=== PATIENT | female | born 1990 | race Caucasian/White ===

== ENCOUNTER 2023-01-15 14:56 | Inpatient (IN) ==
[2023-01-15] MEDS ORDERED: LIDOCAINE 1% LOCAL 20 ML VIAL INFIL PRN (15:03)
[2023-01-15] MEDS: LACTATED RINGER'S 1,000 ML IV PRN ×2 (15:10→16:16)
--- NOTE | 2023-01-15 15:20 | History & Physical Report ---
Date of Service January 15, 2023 Assessment & Plan (1) Supervision of normal intrauterine in primigravida: Plan: Pt is a 32 yo at 40 1/7 WGA presenting to labor and delivery for active labor. Blood type; O+, GBS negative, rubella immune Patient requested epidural, anesthesia consult placed. Proceed with labor and plan for vaginal delivery. History of Present Illness Chief Complaint: Labor Primary Care Provider: Speedy Pineda DO Pt is a 32 y/o female currently at 40 1/7 WGA with an KAITLYN of 01/14/23 as determined by LMP who is here for active labor with ruptured membranes. Her was complicated by GDM. She is having frequent contractions; + movement; + fluid loss; + bloody show. External FHT and external uterine monitors used; moderate FHT variability. Pt had regular appointments with OB. Labs: Blood type: O+ Antibody screen: neg Rubella: immune VDRL/RPR: neg Gonorrhea: neg Chlamydia: neg HIV: neg HbSAg: neg GBS: neg (-) Other screens: cff-DNA: neg CF: neg SMA: neg Last hemoglobin 10/26/22: 12.3 Last platelet count : 230 Allergies Allergy/AdvReac Type Severity Reaction Status Date / Time No Known Drug Allergies Allergy Verified 01/14/23 11:17 Home Medications Medication Instructions Recorded Confirmed Type prenat.vits,elena,[id number] 1 tab PO DAILY 06/02/22 01/15/23 History pantoprazole 40 mg tablet,delayed 40 mg PO QAM #90 tabs 11/19/22 01/15/23 Rx release (Protonix) breast pump #1 ea 01/07/23 01/14/23 Rx Patient History Medical History ADHD GERD (gastroesophageal reflux disease) History of ovarian cyst no surgery intervention Migraine Surgical History H/O wisdom tooth extraction S/P cholecystectomy Family History Grandmother (Maternal) FHx: thyroid cancer Grandmother (Paternal) FHx: breast cancer Breast cancer Mother Endometriosis Thyroid disease Father Hypertension Grandfather (Maternal) Prostate cancer Denies family history of Ovarian cancer Myocardial infarction Colorectal cancer Social History Smoking Status: Never smoker Second Hand Exposure: No; Do You Dip or Chew Tobacco: No; Hx Alcohol Use: No Hx Substance Use: No Preferred Language: Kyrgyz Communication Ability: Effective Visual Impairment: No Limitations Hearing Ability: Normal [employer] Required: No Beliefs That Will Affect Care: None marital status: marital status details: Yovani (32) [phone] Current Living Situation: Spouse Current Living Situation Comment: lives with spouse, 2 dogs. current occupational status: employed current occupation: [employer] @ [employer] Feels Safe at Home: Yes Childhood Exposure to Second-Hand Smoke: No Diet: regular Dental Care, Regularly: Yes Physical Activity Frequency: 3-4 Times per Week Seatbelt Use: always Sunscreen Use: Yes Assistive Devices: None Review of Systems no fever, no chills and no sweats nausea noted no dyspnea no difficulty breathing no chest pain and no palpitations no dysuria no headache(s) no changes in vision no breast pain Physical Exam Physical Exam: General: Alert, oriented. No acute distress. Cardiac: Regular rate and rhythm, no murmurs, gallops, or rubs. Respiratory: Clear to auscultation bilaterally, no wheezes, rales, or rhonchi. No increased work of breathing. No respiratory distress. Abdomen: Gravid, Position: vertex Pelvic: Dilation 4.5 cm, Effacement 80%, Station -[address] Leung. Lower extremities: No lower extremity edema or swelling. No deep calf pain. Results & Data Vital Signs (Past 12 Hours) Vital Signs Pulse BP 01/15/23 15:13 57 L 185/93 H Supervising Physician Co-Signing Physician Notes Resident Physician Supervision Note: I interviewed and examined the patient. Discussed with Dr. Shankar and agree with findings and plan as documented in the note. Any exceptions or clarifications are listed here: 32 yo G1 at 40 1/7 wga presented w/ SROM around 315pm and ctx q2min since then. Denies VB. PNI: resolved FGR, abnormal umbilical vein > echo. SVE 4-5/70/-2. GBS neg, desires epidural Documented By: Kori Leung MD Resident Activity Tracking Resident Involvement: Resident Care Provided Care Provided: OB Delivery
[2023-01-15] MEDS ORDERED: ePHEDrine sulfate 50 MG/ML AMP ONE (15:24)
[2023-01-15] MEDS ORDERED: LIDOCAINE 2%/EPINEPHRINE 1:200,000 20 ML PF ONE (15:24)
[2023-01-15] MEDS ORDERED: SODIUM CHLORIDE 0.9% PF INJ 10 ML VIAL ONE (15:24)
[2023-01-15] MEDS ORDERED: fentaNYL citrate PF 100 MCG/2 ML VIAL ONE (15:24)
[2023-01-15] MEDS ORDERED: BUPIVACAINE 0.25% PF 30 ML VIAL ONE (15:24)
[2023-01-15] MEDS ORDERED: fentaNYL 2MCG/ML ROPIVACAINE 1.25MG/ML 100 ML BAG EPI ONE (15:25)
[2023-01-15] MEDS ORDERED: NALOXONE HCL 1 MG in SODIUM CHLORIDE 0.9% 1000ML 1,000 ML IV PRN (15:46)
[2023-01-15] MEDS ORDERED: ROPIVACAINE 0.5% PF 5 MG/ML 20 ML VIAL EPI PRN (15:46)
[2023-01-15] MEDS ORDERED: LIDOCAINE 2% MPF LOCAL 5 ML VIAL EPI PRN (15:46)
[2023-01-15] MEDS ORDERED: SODIUM CHLORIDE 0.9% PF INJ 10 ML VIAL EPI STA (15:46)
[2023-01-15] MEDS ORDERED: NALOXONE HCL 0.4 MG/1 ML VIAL/CARP IV PRN (15:46)
[2023-01-15] MEDS ORDERED: fentaNYL 2MCG/ML ROPIVACAINE 1.25MG/ML 100 ML BAG EPI PRN (15:46)
[2023-01-15] MEDS ORDERED: fentaNYL citrate PF 100 MCG/2 ML VIAL EPI STA (15:46)
[2023-01-15] MEDS ORDERED: BUPIVACAINE 0.25% PF 30 ML VIAL EPI PRN (15:46)
[2023-01-15] MEDS ORDERED: diphenhydrAMINE 50 MG/ML VIAL IV PRN (15:46)
[2023-01-15] MEDS ORDERED: BUPIVACAINE 0.25% PF 30 ML VIAL EPI STA (15:46)
[2023-01-15] MEDS ORDERED: NALBUPHINE HCL INJ 10 MG/ML AMP IV PRN (15:46)
[2023-01-15] MEDS ORDERED: SODIUM CHLORIDE 0.9% PF INJ 10 ML VIAL EPI PRN (15:46)
[2023-01-15] MEDS ORDERED: fentaNYL citrate PF 100 MCG/2 ML VIAL EPI PRN (15:46)
[2023-01-15] MEDS ORDERED: ePHEDrine sulfate 50 MG/ML AMP IV PRN (15:46)
[2023-01-15] MEDS ORDERED: LIDOCAINE 2%/EPINEPHRINE 1:200,000 20 ML PF EPI STA (15:46)
--- NOTE | 2023-01-15 15:46 | Anesthesiology Consultation ---
Date of Service January 15, 2023 Assessment & Plan (1) Encounter for pre-operative examination: Chart Review Chart Review: Patient NOT seen in Pre Admission Testing and Acceptable Risk for Labor Epidural Consults Requested none History Allergies Allergy/AdvReac Type Severity Reaction Status Date / Time No Known Drug Allergies Allergy Verified 01/14/23 11:17 Medications Home Medications Medication Instructions Recorded Confirmed Last Taken omega-3 fatty acids [Fish Oil] PO 06/02/22 01/14/23 Unknown prenat.vits,elena,[id number]-[id number] 1 tab PO DAILY 06/02/22 01/14/23 Unknown pantoprazole 40 mg tablet,delayed 40 mg PO QAM #90 tabs 11/19/22 01/14/23 Unknown release (Protonix) breast pump #1 ea 01/07/23 01/14/23 Unknown Past Medical History Medical History ADHD GERD (gastroesophageal reflux disease) History of ovarian cyst no surgery intervention Migraine Past Family History Family History Grandmother (Maternal) FHx: thyroid cancer Grandmother (Paternal) FHx: breast cancer Breast cancer Mother Endometriosis Thyroid disease Father Hypertension Grandfather (Maternal) Prostate cancer Denies family history of Ovarian cancer Myocardial infarction Colorectal cancer Past Surgical History Surgical History H/O wisdom tooth extraction S/P cholecystectomy Social History Smoking Status: Never smoker Do You Dip or Chew Tobacco: No Hx Alcohol Use: No Alcohol type: wine and hard liquor alcohol intake frequency: a few times a month Hx Substance Use: No substance use type: does not use Physical Exam Vital Signs Last Vital Signs Pulse 68 01/15/23 15:41 BP 182/85 H 01/15/23 15:39 Pulse Ox 94 01/15/23 15:41
[2023-01-15 15:59] LABS: Hematocrit (blood only) 36.7 % (37.0-47.0); Hemoglobin 12.6 g/dl (12.0-16.0); Mean Corpuscular Hemoglobin 28.2 pg (25.0-34.0); Mean Corpuscular Hgb Conc 34.3 g/dL (32.0-36.0); Mean Corpuscular Volume 82.1 fL (80.0-100.0); Mean Platelet Volume 12.3 fL (9.4-12.4); Platelet Count 212 K/uL (130-400); RDW Coefficient of Variation 13.1 % (11.5-14.5); RDW Standard Deviation 38.8 fL (36.4-46.3); Red Blood Count 4.47 M/uL (4.20-5.40); White Blood Count 17.35 K/ul (4.8-10.8)
[2023-01-15 16:20] LABS: Anion Gap 11 (3-11); BUN Creatinine Ratio 19.6 (10-20); Blood Urea Nitrogen 10 mg/dl (6-23); Calcium 8.9 mg/dl (8.6-10.3); Carbon Dioxide 20 mmol/L (21-32); Chloride 104 mmol/L (98-107); Est GFR (African American) 149.6 ml/min; Glucose 102 mg/dl (70-99(Fasting)); Potassium 3.6 mmol/L (3.5-5.1); Sodium 135 mmol/L (136-145)
[2023-01-15 16:50] LABS: Alanine Aminotransferase 30 U/L (7-52); Albumin Level 3.4 gm/dl (3.4-5.0); Alkaline Phosphatase 303 U/L (34-104); Aspartate Aminotransferase 23 U/L (13-39); Bilirubin Direct 0.2 mg/dl (0-0.2); Bilirubin,Total 0.5 mg/dl (0.2-1.0); Total Protein 6.6 gm/dl (6.0-8.3)
[2023-01-15] MEDS ORDERED: MAG SULFATE 4GM BOLUS FROM BAG IV ONE (18:41)
[2023-01-15] MEDS ORDERED: MAGNESIUM SULFATE 40GM / WTR 1,000 ML BAG IV ONE (18:43)
--- NOTE | 2023-01-15 18:46 | Communication Note ---
Date of Service: January 15, 2023 Delayed entry due to pt care. BPs were reviewed - initial BPs that were elevated were attributed due to significant labor pain as patient was writhing on the bed unable to get comfortable due to contractions. BP did improve after epidural however have slowly increased again despite resting comfortably and in different positions, most recently becoming severe range with persistent severe repeat. Discussed in the setting of persistent severe BPs despite normal labs with UPC pending currently, would call her severe pre-eclampsia and would recommend magnesium. Pt and in agreement, will start mag
[2023-01-15 18:54] LABS: Total Protein Urine Random 78.6 mg/dl (0-11.9)
[2023-01-15 19:00] LABS: Creatinine Urine Random 90.2 mg/dl; Protein Creatinine Ratio Urine 0.9 (0-0.2)
[2023-01-15] MEDS: OXYTOCIN 30 UNITS/500 ML BAG IV PRN ×2 (19:15→19:53)
[2023-01-15] MEDS ORDERED: miSOPROStoL 200 MCG TAB ONE ×2 (19:18→20:00)
[2023-01-15] MEDS: MAGNESIUM SULFATE / WTR 40 GM/1,000 ML BAG IV SCH (19:26)
[2023-01-15] MEDS ORDERED: METHYLERGONOVINE MALEATE 0.2 MG/ML AMP ONE ×2 (19:42→20:00)
[2023-01-15] MEDS ORDERED: SODIUM CHLORIDE 0.9% 250 ML IV PRN (19:50)
[2023-01-15] MEDS ORDERED: TRANEXAMIC ACID / 0.7% NACL 1000MG/100ML BAG IV ONE (19:59)
[2023-01-15] MEDS ORDERED: CARBOPROST TROMETHAMINE 250 MCG/ML AMPUL ONE (20:00)
--- NOTE | 2023-01-15 20:28 | Delivery Summary ---
Vaginal Delivery Summary Date of Service January 15, 2023 Vaginal Delivery Summary (vaginal lac, R labial laceration) PREOPERATIVE DIAGNOSIS: 1. Single intrauterine at 40 1/7 wga 2. SROM 3. Labor 4. Pre-eclampsia w/ severe features 5. Resolved FGR 6. Abnormal umbilical vein POSTOPERATIVE DIAGNOSIS: 1. Single intrauterine at 40 1/7 wga 2. SROM 3. Labor 4. Pre-eclampsia w/ severe features 5. Resolved FGR 6. Abnormal umbilical vein 7. Delivered PROCEDURE: 1. Normal spontaneous vaginal delivery. SURGEON: Kori Leung MD ANESTHESIA: Epidural. ESTIMATED BLOOD LOSS: 800 mL FLUIDS: Continuous LR. URINE OUTPUT: Not measured COMPLICATIONS: hemorrhage CONDITION: Stable. INDICATIONS: 32 yo G1 at 40 1/7 wga presented after srom this afternoon and contractions increasing in frequency and intensity. On arrival was 4-5cm. She received an epidural for pain control. She then progressed to complete and desired to push FINDINGS: A viable female , weight pending with Apgars of 8 and 9 at 1 and 5 minutes respectively. SPECIMEN: Cord blood, placenta OPERATIVE REPORT: The patient progressed to 10 cm, 100% effaced and +2 station, pushed over intact perineum with anesthesia to deliver a viable female infant, weight and Apgars as above. Head of delivered in LORRI position. Nuchal cord x 2 was noted and reduced. Body and shoulders were delivered without difficulty. was delivered to maternal abdomen and nursing staff. Delayed cord clamping was performed for 60 seconds. Cord was clamped and cut. Cord blood was obtained. Placenta delivered spontaneously intact with 3-vessel cord. IV oxytocin and fundal massage were given however OPAL atony was noted. Bimanual massage and hemabate was given. This did improve bleeding for a time. 1000mcg cytotec was placed CT. Vagina, cervix, perineum, and placenta were inspected. Bilateral vaginal tears were noted and repaired using 3-0 vicryl. After repair of the right vagina, atony and increased bleeding was noted so 1g TXA was given as well as massage. The left vaginal tear was then repaired. Additional bleeding was noted and repeat dose of hemabate was given which did improve however continued bleeding was noted. Bimanual massage was again performed, BP was taken and noted to be normal so decision was made to give methergine due to continued bleeding. At this point, improvement in bleeding was noted. The superior right labial laceration was noted and repaired using 4-0 vicryl in interrupted stitches. At this point bleeding was stable and lacerations were all repaired. Sponge and needle counts correct x2. No sponges were left behind. Mother and stable in immediate period. [facility] Vaginal Delivery Charge Vaginal Delivery Codes: 87843 global code for the antepartum, delivery, and post- Delivery Type Details: (vaginal lac, R labial laceration)
[2023-01-15 20:38] LABS: Hematocrit (blood only) 32.6 % (37.0-47.0); Hemoglobin 11.1 g/dl (12.0-16.0); Mean Corpuscular Hemoglobin 28.4 pg (25.0-34.0); Mean Corpuscular Volume 83.4 fL (80.0-100.0); Mean Platelet Volume 12.3 fL (9.4-12.4); Platelet Count 227 K/uL (130-400); RDW Coefficient of Variation 13.1 % (11.5-14.5); RDW Standard Deviation 39.6 fL (36.4-46.3); Red Blood Count 3.91 M/uL (4.20-5.40)
[2023-01-15] MEDS ORDERED: bisacodyL 10 MG SUPP PR PRN (20:52)
[2023-01-15] MEDS ORDERED: IBUPROFEN 600 MG TAB PO PRN (20:52)
[2023-01-15] MEDS ORDERED: HYDROCORTISONE ACETATE 25 MG SUPP PR PRN (20:52)
[2023-01-15] MEDS ORDERED: CARBOPROST TROMETHAMINE 250 MCG/ML AMPUL IM ONE (20:52)
[2023-01-15] MEDS ORDERED: DIPHTHERIA/TETANUS/PERTUSSIS Vaccine (Tdap, Age 7+yrs) 0.5mL SYR/VL IM ONE (20:52)
[2023-01-15] MEDS ORDERED: OXYTOCIN 20 UNITS in LACTATED RINGER'S 1,000 ML IV SCH (20:52)
[2023-01-15] MEDS ORDERED: METHYLERGONOVINE MALEATE 0.2 MG/ML AMP IM ONE (20:52)
[2023-01-15] MEDS ORDERED: BENZOCAINE 20% AER SPR 82.5 GM CAN EXT PRN (20:52)
[2023-01-15] MEDS ORDERED: miSOPROStoL 200 MCG TAB PR ONE (20:52)
[2023-01-15] MEDS ORDERED: OXYTOCIN 30 UNITS/500 ML BAG IV PRN (20:52)
[2023-01-15] MEDS ORDERED: ACETAMINOPHEN 325 MG TAB PO PRN (20:52)
[2023-01-15 20:59] LABS: Fibrinogen 435 mg/dl (184-400); INR 0.9 (0.9-1.1); Partial Thromboplastin Ratio 0.8; Partial Thromboplastin Time 23.4 Seconds (21.0-31.0); Prothrombin Time 9.5 Seconds (9.0-12.0)
[2023-01-15] MEDS: ceFAZolin 2000MG 2,000 MG/15 ML SYR IV SCH (21:02)
[2023-01-15] MEDS: DOCUSATE SODIUM 100 MG CAP PO SCH (21:16)
--- NOTE | 2023-01-15 21:39 | Anesthesia Procedure Note ---
Date of Service January 15, 2023 Anesthesia Post Epidural Note Vital Signs Vital Signs: Temp Pulse Resp BP Pulse Ox 98.2 F 121 H 18 144/72 H 89 L 01/15/23 16:22 01/15/23 21:36 01/15/23 18:59 01/15/23 21:36 01/15/23 21:36 Notes Mental Status: alert / awake / arousable and participated in evaluation Nausea / Vomiting: adequately controlled Pain: adequately controlled Airway Patency, RR, SpO2: stable & adequate BP & HR: stable & adequate Hydration State: stable & adequate Neuraxial Anesthesia: was administered and sensory block is resolving Anesthetic Complications: no major complications apparent and Pt Satisfied with anesthetic care Epidural: Removed without complications and With tip intact
[2023-01-15 23:39] LABS: Hematocrit (blood only) 30.9 % (37.0-47.0); Hemoglobin 10.8 g/dl (12.0-16.0); Mean Corpuscular Hemoglobin 28.7 pg (25.0-34.0); Mean Corpuscular Volume 82.2 fL (80.0-100.0); Mean Platelet Volume 12.5 fL (9.4-12.4); Platelet Count 256 K/uL (130-400); RDW Coefficient of Variation 13.3 % (11.5-14.5); RDW Standard Deviation 39.6 fL (36.4-46.3); Red Blood Count 3.76 M/uL (4.20-5.40); White Blood Count 34.51 K/ul (4.8-10.8)
[2023-01-16] MEDS: ceFAZolin 2000MG 2,000 MG/15 ML SYR IV SCH (04:25)
--- NOTE | 2023-01-16 06:22 | Obstetrical Progress Note ---
Date of Service <Antionette Shankar DO - Last Filed: 01/16/23 06:26> January 16, 2023 Assessment & Plan <Antionette hSankar DO - Last Filed: 01/16/23 06:26> (1) care following vaginal delivery: Pt doing better this morning. Continue NPO. Continue brown. Continue Mg for 24 hours total. After discharge will have 6 week follow-up with Dr. Leung. (2) hemorrhage: Will monitor hemoglobin/hematocrit at least daily. CBC pending. <Kori Leung MD - Last Filed: 01/16/23 07:49> (1) care following vaginal delivery: (2) hemorrhage: Subjective <Antionette Shankar DO - Last Filed: 01/16/23 06:26> Pt is a 32 y/o female who is PPD#1 following at 40 1/7 weeks. Delivery was complicated by preeclampsia and post- hemorrhage of 800 mL. Spoke to nursing staff this morning, who state that the patient is looking better this morning both clinically and by her vitals. Nursing staff voiced no further concerns for her at this time. Patient also states that she feels better than she did last night. She is NPO and has a brown in place and is on Mag precautions. She states that her pain is minimal, like a 1/10, and that she is just very tired this morning. She plans to breast feed and bottle feed. She has no questions or concerns at this time. Constitutional: no fever, no chills or no sweats Respiratory: no dyspnea Cardiovascular: no chest pain or no palpitations Breast: no breast pain Genitourinary (female): no dysuria Neurologic: no headache(s) no changes in vision, no headaches Physical Exam <Antionette Shankar DO - Last Filed: 01/16/23 06:26> General: Alert, oriented. No acute distress. Cardiac: Regular rate and rhythm, no murmurs, rubs, or gallops. Respiratory: Clear to auscultation bilaterally, no wheezes/rales/rhonchi. No increased work of breathing. Symmetrical chest rise. No respiratory distress. Abdomen: Soft, nontender, nondistended. Bowel sounds present. Uterus: Uterine fundus firm. Lower extremities: No lower extremity edema or swelling. No deep calf pain. Results & Data <Antionette Shankar, DO - Last Filed: 01/16/23 06:26> Vital Signs (Past 12 Hours) Vital Signs Temp Pulse Resp BP Pulse Ox 01/16/23 04:38 37.1 C 01/16/23 04:00 18 01/16/23 03:00 18 01/16/23 03:00 37.4 C 01/16/23 02:00 18 01/16/23 01:00 18 01/16/23 00:00 18 01/16/23 01:35 37.7 C H 18 01/15/23 23:00 18 01/16/23 00:28 38.3 C H 01/15/23 22:00 18 01/15/23 22:30 18 01/15/23 22:00 18 01/15/23 21:30 18 01/15/23 21:15 18 01/15/23 21:00 18 01/15/23 20:45 18 01/15/23 21:00 18 01/15/23 20:00 18 01/15/23 20:30 36.5 C 01/16/23 06:10 98 H 96 01/16/23 06:05 100 H 96 01/16/23 06:00 99 H 96 01/16/23 05:55 98 H 96 01/16/23 05:50 94 H 96 01/16/23 05:45 92 H 96 01/16/23 05:40 90 96 01/16/23 05:35 93 H 97 01/16/23 05:30 96 H 95 01/16/23 05:31 98 H 92 01/16/23 05:28 96 H 121/65 01/16/23 05:25 88 95 01/16/23 05:24 92 H 93 01/16/23 05:20 83 95 01/16/23 05:15 83 96 01/16/23 05:12 84 94 01/16/23 05:10 88 96 01/16/23 05:07 91 H 94 01/16/23 05:05 97 H 96 01/16/23 05:02 87 94 01/16/23 05:00 89 95 01/16/23 04:57 94 H 94 01/16/23 04:55 94 H 95 01/16/23 04:50 85 95 01/16/23 04:45 88 95 01/16/23 04:44 87 94 01/16/23 04:40 87 95 01/16/23 04:38 86 94 01/16/23 04:35 92 H 95 01/16/23 04:33 93 H 94 01/16/23 04:30 86 97 01/16/23 04:28 93 H 116/63 01/16/23 04:25 96 H 97 01/16/23 04:23 95 H 94 01/16/23 04:20 87 95 01/16/23 04:15 86 96 01/16/23 04:10 93 H 97 01/16/23 04:05 97 H 97 01/16/23 04:00 90 96 01/16/23 03:55 97 H 96 01/16/23 03:50 97 H 97 01/16/23 03:45 94 H 97 01/16/23 03:40 91 H 96 01/16/23 03:35 92 H 97 01/16/23 03:30 96 H 96 01/16/23 03:25 99 H 97 01/16/23 03:20 91 H 96 01/16/23 03:18 104 H 123/79 01/16/23 03:17 93 H 89 L 01/16/23 03:15 94 H 97 01/16/23 03:10 112 H 97 01/16/23 03:05 107 H 96 01/16/23 03:00 109 H 96 01/16/23 02:55 104 H 96 01/16/23 02:50 111 H 96 01/16/23 02:45 111 H 96 01/16/23 02:40 102 H 97 01/16/23 02:35 110 H 96 01/16/23 02:30 107 H 96 01/16/23 02:25 112 H 96 01/16/23 02:20 107 H 98 01/16/23 02:15 112 H 96 01/16/23 02:10 112 H 97 01/16/23 02:05 114 H 96 01/16/23 02:00 108 H 97 01/16/23 01:55 115 H 97 01/16/23 01:50 111 H 97 01/16/23 01:48 94 H 115/62 01/16/23 01:38 103 H 97 01/16/23 01:33 97 H 96 01/16/23 01:34 96 H 127/63 92 01/16/23 01:28 94 H 96 01/16/23 01:27 95 H 94 01/16/23 01:23 96 H 95 01/16/23 01:21 101 H 94 01/16/23 01:18 102 H 95 01/16/23 01:13 98 H 95 01/16/23 01:09 100 H 94 01/16/23 01:08 101 H 95 01/16/23 01:03 102 H 95 01/16/23 01:04 101 H 94 01/16/23 00:58 102 H 95 01/16/23 00:59 102 H 94 01/16/23 00:53 94 H 95 01/16/23 00:48 101 H 95 01/16/23 00:43 102 H 96 01/16/23 00:38 99 H 98 01/16/23 00:33 104 H 97 01/16/23 00:28 104 H 97 01/16/23 00:26 102 H 139/65 01/16/23 00:23 102 H 98 01/16/23 00:18 111 H 98 01/16/23 00:19 116 H 91 01/16/23 00:13 103 H 95 01/16/23 00:11 101 H 137/62 01/16/23 00:08 104 H 96 01/16/23 00:03 107 H 96 01/15/23 23:58 112 H 98 01/15/23 23:57 107 H 134/65 01/15/23 23:56 114 H 89 L 01/15/23 23:53 116 H 99 01/15/23 23:48 95 01/15/23 23:48 114 H 01/15/23 23:48 121 H 89 L 01/15/23 23:43 112 H 96 01/15/23 23:41 115 H 129/66 01/15/23 23:38 117 H 97 01/15/23 23:37 112 H 89 L 01/15/23 23:33 106 H 97 01/15/23 23:28 99 H 99 01/15/23 23:23 96 H 98 01/15/23 23:22 95 H 133/70 01/15/23 23:18 90 99 01/15/23 23:16 97 H 88 L 01/15/23 23:13 93 H 98 01/15/23 23:11 96 H 89 L 01/15/23 23:12 96 H 130/61 01/15/23 23:08 93 H 100 01/15/23 23:07 95 H 127/82 01/15/23 23:03 88 97 01/15/23 23:02 89 127/65 01/15/23 22:58 91 H 96 01/15/23 22:57 86 124/60 01/15/23 22:53 88 95 01/15/23 22:52 96 H 118/68 01/15/23 22:51 93 H 94 01/15/23 22:48 84 94 01/15/23 22:45 87 93 01/15/23 22:43 86 92 01/15/23 22:41 90 118/57 L 01/15/23 22:38 71 96 01/15/23 22:39 70 94 01/15/23 22:33 117 H 95 01/15/23 22:31 107 H 93 01/15/23 22:28 106 H 96 01/15/23 22:23 114 H 95 01/15/23 22:22 184 H 68/31 L 01/15/23 22:21 107 H 93 01/15/23 22:18 113 H 96 01/15/23 22:13 111 H 97 01/15/23 22:08 111 H 95 01/15/23 22:06 109 H 01/15/23 22:06 108 H 151/70 H 92 01/15/23 22:03 115 H 96 01/15/23 21:58 110 H 95 01/15/23 21:53 115 H 96 01/15/23 21:51 126 H 158/106 H 01/15/23 21:48 119 H 96 01/15/23 21:43 124 H 96 01/15/23 21:38 131 H 95 01/15/23 21:36 121 H 144/72 H 89 L 01/15/23 21:33 119 H 95 01/15/23 21:28 117 H 96 01/15/23 21:23 122 H 98 01/15/23 21:20 126 H 142/75 H 01/15/23 21:18 122 H 95 01/15/23 21:17 152 H 93 01/15/23 21:13 130 H 96 01/15/23 21:09 132 H 94 01/15/23 21:08 127 H 95 01/15/23 21:04 127 H 91 01/15/23 21:03 130 H 97 01/15/23 20:58 134 H 96 01/15/23 20:56 127 H 94 01/15/23 20:53 128 H 94 01/15/23 20:51 133 H 160/58 H 01/15/23 20:50 125 H 93 01/15/23 20:48 127 H 92 01/15/23 20:45 128 H 94 01/15/23 20:43 127 H 96 01/15/23 20:40 130 H 92 01/15/23 20:38 122 H 99 01/15/23 20:36 112 H 130/68 01/15/23 20:33 114 H 96 01/15/23 20:28 109 H 90 01/15/23 20:29 103 H 163/70 H 01/15/23 20:23 103 H 97 01/15/23 20:24 102 H 142/93 H 01/15/23 20:21 96 H 91 01/15/23 20:19 98 H 139/70 01/15/23 20:18 103 H 95 01/15/23 20:13 110 H 100 01/15/23 20:08 82 127/72 100 01/15/23 20:03 86 125/76 99 01/15/23 20:00 86 133/65 01/15/23 19:58 89 97 01/15/23 19:53 95 01/15/23 19:53 82 01/15/23 19:53 86 135/73 93 01/15/23 19:48 96 H 97 01/15/23 19:47 95 H 130/72 01/15/23 19:42 105 H 131/75 01/15/23 19:34 90 94 01/15/23 19:35 92 H 94 01/15/23 19:29 97 01/15/23 19:29 86 01/15/23 19:29 71 151/79 H 01/15/23 19:26 90 149/81 H 01/15/23 19:23 84 138/74 01/15/23 19:19 94 H 131/62 01/15/23 19:14 109 H 145/71 H 01/15/23 19:09 80 154/76 H 01/15/23 19:04 79 151/77 H 01/15/23 18:59 82 18 135/89 01/15/23 18:29 69 94 01/15/23 18:28 69 189/90 H 01/15/23 18:26 67 100 01/15/23 18:21 67 97 <Kori Leung MD - Last Filed: 01/16/23 07:49> Co-Signing Physician Notes Resident Physician Supervision Note: I interviewed and examined the patient. Discussed with Dr. Shankar and agree with findings and plan as documented in the note. Any exceptions or clarifica tions are listed here: PP1 s/p c/b PET w/ SF on mag and PPH. VSS, exam benign and wnl. Brown draining clear adequate urine. On ancef x 24 hrs due to repeated bimanual massage during PPH. Continue mag until 24hrs after delivery Documented By: Kori Leung MD Resident Activity Tracking <Antionette Shankar DO - Last Filed: 01/16/23 06:26> Resident Involvement: Resident Care Provided Care Provided: OB Delivery
[2023-01-16 07:26] LABS: Hematocrit (blood only) 25.8 % (37.0-47.0); Hemoglobin 8.9 g/dl (12.0-16.0); Mean Corpuscular Hemoglobin 28.3 pg (25.0-34.0); Mean Corpuscular Hgb Conc 34.5 g/dL (32.0-36.0); Mean Corpuscular Volume 82.2 fL (80.0-100.0); Mean Platelet Volume 12.6 fL (9.4-12.4); Platelet Count 211 K/uL (130-400); RDW Coefficient of Variation 13.2 % (11.5-14.5); RDW Standard Deviation 38.8 fL (36.4-46.3); Red Blood Count 3.14 M/uL (4.20-5.40); White Blood Count 25.31 K/ul (4.8-10.8)
[2023-01-16] MEDS: DOCUSATE SODIUM 100 MG CAP PO SCH ×2 (09:16→22:21)
[2023-01-16] MEDS: FERROUS SULFATE 325 MG TAB PO SCH (09:16)
[2023-01-16] MEDS: PRENATAL VITAMIN 1 TAB PO SCH (09:16)
[2023-01-16] MEDS: LACTATED RINGER'S 1,000 ML IV PRN (10:29)
[2023-01-16] MEDS: AMPICILLIN/SULBACTAM SOD 1,500 MG in 0.9 % SODIUM CHLORIDE 100 ML IV SCH ×3 (10:29→22:16)
[2023-01-16] MEDS: MAGNESIUM SULFATE / WTR 40 GM/1,000 ML BAG IV SCH (11:45)
[2023-01-16] MEDS ORDERED: bisacodyL 5 MG TABEC PO SCH (20:00)
--- NOTE | 2023-01-17 06:51 | Obstetrical Progress Note ---
Date of Service January 17, 2023 Assessment & Plan (1) care following vaginal delivery: Patient is PPD2 from with PPH, and s/p 24 hours of magnesium for severe PreEclampsia, with normal BP after delivery without medications. Labs pending this morning but patient is ambulatory without any lightheadedness. Would like to go home today which seems reasonable. Discussed 1wk short interval BP check given her preE, though she is not on meds and currently normotensive, and routine 6wk check. Subjective Ambulation: ambulating normally Voiding: no voiding problems Passing Gas:: Yes Diet Tolerance:: regular diet Lochia:: Small Feeding Type:: breast feeding No VILLEGAS, no vision changes, edema improved Physical Exam Constitutional WD/WN, vitals as above Eyes PERRL, conjunctivae normal, anicteric sclerae Neck normal visual inspection Respiratory normal respiratory effort and able to speak in complete sentences; no respiratory distress and no labored breathing Cardiovascular Rate/Rhythm: regular rate and regular rhythm Extremities: no edema Chest (Breasts) Chest: normal inspection of chest Gastrointestinal (Abdomen) Inspection/Auscultation: abdomen normal to inspection Soft, postgravid Fundus firm below U Psychiatric A+Ox3, euthymic affect Genitourinary OB Exam Abdomen: + fundal height Fundus: + firm and + relation to umbilicus (fundus just below umbilicus); not tender Results & Data Vital Signs (Past 12 Hours) Vital Signs Temp Pulse Pulse Resp BP BP Pulse Ox 01/17/23 02:43 97.9 F 79 16 119/76 96 01/16/23 19:15 98.6 F 111 H 18 120/70 01/16/23 23:06 98.1 F 92 H 18 113/76 96 01/16/23 18:50 107 H 96 01/16/23 18:49 108 H 124/60 O2 Del Method 01/17/23 02:43 Room Air 01/16/23 19:15 01/16/23 23:06 Room Air 01/16/23 18:50 01/16/23 18:49
[2023-01-17 07:20] LABS: Hematocrit (blood only) 21.8 % (37.0-47.0); Hemoglobin 7.3 g/dl (12.0-16.0)
[2023-01-17] MEDS: FERROUS SULFATE 325 MG TAB PO SCH (08:11)
[2023-01-17] MEDS: DOCUSATE SODIUM 100 MG CAP PO SCH (08:12)
[2023-01-17] MEDS: PRENATAL VITAMIN 1 TAB PO SCH (08:12)
== END 2023-01-17 13:33 | disposition home or self-care (01) | DRG 806 ==
LOC: OPB 14:56 → 4S1 14:57 → 4E2 01-16 19:06